=== PATIENT | female | born 1985 | race Caucasian/White ===

== ENCOUNTER 2017-03-21 21:59 | Emergency (ER) | payer MEDICAID | END 2017-03-21 23:45 | disposition home or self-care (01) | LOC: D.ER 21:59 | DX: S82.831A Other fracture of upper and lower end of right fibula, initial encounter for closed fracture (principal); X58.XXXA Exposure to other specified factors, initial encounter; Y93.89 Activity, other specified; Y92.89 Other specified places as the place of occurrence of the external cause ==

== ENCOUNTER 2017-08-17 14:35 | Emergency (ER) | payer MEDICAID ==
[2017-08-17 16:48] LABS: APPEARANCE CLEAR (CLEAR); BILIRUBIN NEGATIVE (NEGATIVE); COLOR YELLOW (YELLOW); GLUCOSE NEGATIVE (NEGATIVE); KETONE NEGATIVE (NEGATIVE); NITRITE NEGATIVE (NEGATIVE); PH 6.5 (5.0-6.0); PROTEIN NEGATIVE (NEGATIVE); SPECIFIC GRAVITY 1.015 (1.005-1.020); UROBILINOGEN NORMAL (NORMAL)
[2017-08-17 16:51] LABS: BACTERIA FEW /hpf (NONE SEEN); EPITHELIAL CELLS 0-5 /hpf (0-5); RED CELLS - URINE 0-5 /hpf (0-5); WHITE CELLS - URINE 0-5 /hpf (0-5)
== END 2017-08-17 18:31 | disposition home or self-care (01) ==
LOC: D.ER 14:35
PROVIDERS: Emergency Medicine
DX: M54.16 Radiculopathy, lumbar region (principal)

== ENCOUNTER 2018-06-29 22:06 | Emergency (ER) | payer SELFPAY ==
[~2018-06-29] VITALS: Ht 170.2 cm; Wt 75.0 kg
[2018-06-29 23:04] VITALS: Ht 170.2 cm; Wt 75.0 kg
[2018-06-29] MEDS ORDERED: IBUPROFEN800 MG PO (23:04)
[2018-06-30] MEDS ORDERED: HYDROCODON-ACE1 EAC7 PO (00:24)
[2018-06-30 00:45] VITALS: BP 99/63
== END 2018-06-30 00:45 | disposition home or self-care (01) ==
LOC: D.ER 22:06
DX: S93.402A Sprain of unspecified ligament of left ankle, initial encounter (principal); X50.1XXA Overexertion from prolonged static or awkward postures, initial encounter; Y93.89 Activity, other specified; Y92.89 Other specified places as the place of occurrence of the external cause